=== PATIENT | male | born 1980 | race Caucasian/White ===

== ENCOUNTER → 2023-08-02 09:04 | Outpatient (BNVA) | payer OTHER, SELFPAY | PROVIDERS: Visit Provider Internal Medicine | DX: R61 Generalized hyperhidrosis (principal); R79.89 Other specified abnormal findings of blood chemistry; E23.7 Disorder of pituitary gland, unspecified; Z79.890 Hormone replacement therapy | CPT/HCPCS: 99204 ==

== ENCOUNTER → 2023-08-29 08:16 | Outpatient (BNVA) | payer OTHER, SELFPAY | PROVIDERS: Visit Provider Internal Medicine | DX: E16.2 Hypoglycemia, unspecified; E23.7 Disorder of pituitary gland, unspecified; R61 Generalized hyperhidrosis | CPT/HCPCS: 99214 ==